=== PATIENT | female | born 1940 | race Caucasian/White ===

== ENCOUNTER 2022-08-23 00:45 | Inpatient (IN) ==
[2022-08-23] MEDS ORDERED: Morphine 4 MG/ML VIAL (1 ml) IV ONE (01:01)
[2022-08-23] MEDS ORDERED: Ondansetron 4 mg VIAL 2 MG/ML 2 ml VIAL IV ONE (01:01)
[2022-08-23] MEDS ORDERED: HYDROmorphone 1 MG/1 ML SYRINGE IV ONE (01:54)
[2022-08-23 02:13] LABS: ABS Lymphocytes 0.7 10^3/ul (1.0-4.8); ABS Monocytes 0.6 10^3/ul (0-0.8); ABS Neutrophils 9.9 10^3/ul (1.5-7.7); Eosinophil % 0.2 %; Hematocrit 40 % (35-47); Hemoglobin 13.2 g/dL (12.0-16.0); Lymphocyte % 6.1 %; Mean Corpuscular HGB Conc 33 g/dL (31-36); Mean Corpuscular Hemoglobin 32 pg (27-31); Mean Corpuscular Volume 97 fL (80-97); Mean Platelet Volume 6.9 fL (7.4-10.4); Platelet Count 234 10^3/uL (150-450); Red Blood Count 4.13 10^6 /uL (3.70-4.87); Red Cell Distribution Width 14 % (10-15); White Blood Count 11.1 10^3/uL (3.5-10.8)
[2022-08-23] MEDS ORDERED: HYDROmorphone 0.5 MG/0.5 ML SYRINGE IV PRN (02:38)
[2022-08-23 02:46] LABS: Albumin 4.3 g/dL (3.2-5.2); Albumin/Globulin Ratio 2.3 (1-3); C Reactive Protein 2.74 mg/L (<8.01); Calcium 9.3 mg/dL (8.6-10.3); Globulin 1.9 g/dL (2-4); Potassium 3.7 mmol/L (3.5-5.0); Total Bilirubin 1.2 mg/dL (0.2-1.0); Total Protein 6.2 g/dL (6.4-8.9); eGFR CKD-EPI 87.5 (>60)
[2022-08-23 03:33] LABS: High Sensitivity Troponin 1 Hr 13 pg/mL (<15)
[2022-08-23] MEDS ORDERED: Labetalol IV 5 MG/ML 20 ml VIAL IV PUSH PRN (03:40)
[2022-08-23] MEDS ORDERED: ceFAZolin 2 GM in NS PREMIX 2 GM/100 ML BAG IVPB ONE (10:34)
[2022-08-23] MEDS ORDERED: ceFAZolin 1 GM in Dextrose 1 GM/50 ML BAG ONE (12:31)
[2022-08-23] MEDS ORDERED: fentaNYL 250 mcg/5 ml 50 MCG/ML 5 ml VIAL (250 MCG) ONE (12:59)
[2022-08-23] MEDS ORDERED: Propofol 10 MG/ML 20 ML BTL ONE (13:00)
[2022-08-23] MEDS ORDERED: Dexamethasone IV 4 MG/ML VIAL 1 ml VIAL ONE (13:00)
[2022-08-23] MEDS ORDERED: Ondansetron 4 mg VIAL 2 MG/ML 2 ml VIAL ONE (13:00)
[2022-08-23] MEDS ORDERED: Bupivacaine 0.5% 50 ML MDV VIAL ONE (13:26)
[2022-08-23] MEDS ORDERED: fentaNYL 100 mcg/2 ml 50 MCG/ML VIAL IV PRN (16:27)
[2022-08-23] MEDS ORDERED: Naloxone 0.4 mg VIAL 0.4 mg/ml 1 ml VIAL IV PRN (16:27)
[2022-08-23] MEDS ORDERED: Ondansetron 4 mg VIAL 2 MG/ML 2 ml VIAL IV PRN (16:27)
[2022-08-23] MEDS ORDERED: HYDROcodone/ACETAMIN 5/325 mg TAB PO PRN (16:27)
[2022-08-23] MEDS ORDERED: Metoclopramide 5 MG/ML VIAL (10 mg) IV PRN (16:27)
[2022-08-23] MEDS: ceFAZolin 1 GM in Dextrose 1 GM/50 ML BAG IVPB SCH (20:56)
[2022-08-23] MEDS: Acetaminophen IV 1 GM/100ML 1,000 MG/100 ML BAG IV PRN (22:35)
[2022-08-23] MEDS: Ondansetron 4 mg VIAL 2 MG/ML 2 ml VIAL IV PRN (22:35)
[2022-08-24] MEDS: ceFAZolin 1 GM in Dextrose 1 GM/50 ML BAG IVPB SCH ×2 (05:49→13:43)
[2022-08-24 05:51] LABS: ABS Lymphocytes 0.7 10^3/ul (1.0-4.8); ABS Monocytes 0.7 10^3/ul (0-0.8); ABS Neutrophils 8.4 10^3/ul (1.5-7.7); Hematocrit 31 % (35-47); Hemoglobin 10.7 g/dL (12.0-16.0); Lymphocyte % 7.1 %; Mean Corpuscular HGB Conc 35 g/dL (31-36); Mean Corpuscular Hemoglobin 34 pg (27-31); Mean Corpuscular Volume 98 fL (80-97); Mean Platelet Volume 7.3 fL (7.4-10.4); Platelet Count 196 10^3/uL (150-450); Red Blood Count 3.16 10^6 /uL (3.70-4.87); Red Cell Distribution Width 14 % (10-15); White Blood Count 9.8 10^3/uL (3.5-10.8)
[2022-08-24 06:22] LABS: Calcium 8.6 mg/dL (8.6-10.3); Potassium 4.3 mmol/L (3.5-5.0); eGFR CKD-EPI 86.3 (>60)
[2022-08-24] MEDS: Enoxaparin 40 MG/0.4 ML SYR SUBCUT SCH (08:50)
[2022-08-24] MEDS: Ondansetron 4 mg VIAL 2 MG/ML 2 ml VIAL IV PRN (09:21)
[2022-08-24] MEDS: Acetaminophen IV 1 GM/100ML 1,000 MG/100 ML BAG IV PRN (14:15)
[2022-08-25 06:21] LABS: ABS Lymphocytes 1.1 10^3/ul (1.0-4.8); ABS Neutrophils 7.7 10^3/ul (1.5-7.7); Eosinophil % 0.1 %; Hematocrit 29 % (35-47); Hemoglobin 9.9 g/dL (12.0-16.0); Lymphocyte % 11.5 %; Mean Corpuscular HGB Conc 34 g/dL (31-36); Mean Corpuscular Hemoglobin 33 pg (27-31); Mean Corpuscular Volume 98 fL (80-97); Mean Platelet Volume 7.6 fL (7.4-10.4); Platelet Count 186 10^3/uL (150-450); Red Cell Distribution Width 14 % (10-15); White Blood Count 9.8 10^3/uL (3.5-10.8)
[2022-08-25 06:30] LABS: Calcium 8.6 mg/dL (8.6-10.3); Potassium 4.7 mmol/L (3.5-5.0); eGFR CKD-EPI 78.2 (>60)
[2022-08-25] MEDS: Enoxaparin 40 MG/0.4 ML SYR SUBCUT SCH (08:18)
[2022-08-25] MEDS ORDERED: Iohexol 350 (CONTRAST) 500 ML MDV IV ONE (11:29)
[2022-08-25 12:09] LABS: Urine Appearance Clear; Urine Bilirubin Negative (Negative); Urine Blood Negative (Negative); Urine Color Yellow; Urine Glucose Negative (Negative); Urine Ketones Trace (Negative); Urine Nitrite Negative (Negative); Urine Protein Negative (Negative); Urine Specific Gravity 1.023 (1.002-1.030); Urine Urobilinogen Negative (Negative)
[2022-08-26 05:46] LABS: ABS Lymphocytes 1.5 10^3/ul (1.0-4.8); ABS Monocytes 0.8 10^3/ul (0-0.8); ABS Neutrophils 4.9 10^3/ul (1.5-7.7); Eosinophil % 0.3 %; Hematocrit 31 % (35-47); Hemoglobin 10.3 g/dL (12.0-16.0); Lymphocyte % 20.9 %; Mean Corpuscular HGB Conc 33 g/dL (31-36); Mean Corpuscular Hemoglobin 33 pg (27-31); Mean Corpuscular Volume 98 fL (80-97); Mean Platelet Volume 7.9 fL (7.4-10.4); Platelet Count 210 10^3/uL (150-450); Red Blood Count 3.16 10^6 /uL (3.70-4.87); Red Cell Distribution Width 14 % (10-15); White Blood Count 7.2 10^3/uL (3.5-10.8)
[2022-08-26 06:06] LABS: Calcium 8.7 mg/dL (8.6-10.3); Potassium 4.2 mmol/L (3.5-5.0); eGFR CKD-EPI 87.2 (>60)
[2022-08-26 08:30] VITALS: BP 136/84
[2022-08-26] MEDS: Enoxaparin 40 MG/0.4 ML SYR SUBCUT SCH (08:38)
== END 2022-08-26 09:50 | DRG 522 ==
LOC: ED 00:45 → SUATTDRO 02:29 → EDHOLD 02:29 → SSU 04:51
PROVIDERS: ADMIT Student in an Organized Health Care Education/Training Program; ATTEND Student in an Organized Health Care Education/Training Program

== ENCOUNTER 2022-08-25 07:34 | Inpatient (IN) ==
[2022-08-26] MEDS: Enoxaparin 40 MG/0.4 ML SYR SUBCUT SCH (10:07)
[2022-08-26] MEDS: Multivitamins/Minerals TAB PO SCH (13:28)
[2022-08-26] MEDS: Polyethylene Glycol 3350 17 GM PACKET PO PRN (18:51)
[2022-08-26] MEDS: Senna TAB 8.6 mg TAB PO SCH (21:29)
[2022-08-27] MEDS: Enoxaparin 40 MG/0.4 ML SYR SUBCUT SCH (08:42)
[2022-08-27] MEDS: Multivitamins/Minerals TAB PO SCH (08:42)
[2022-08-27] MEDS: Polyethylene Glycol 3350 17 GM PACKET PO PRN (08:47)
[2022-08-27] MEDS: Senna TAB 8.6 mg TAB PO SCH (20:30)
[2022-08-28 05:28] LABS: ABS Eosinophils 0.1 10^3/ul (0-0.6); ABS Lymphocytes 1.3 10^3/ul (1.0-4.8); ABS Monocytes 0.6 10^3/ul (0-0.8); ABS Neutrophils 2.2 10^3/ul (1.5-7.7); Eosinophil % 3.1 %; Hematocrit 26 % (35-47); Hemoglobin 8.4 g/dL (12.0-16.0); Lymphocyte % 30.4 %; Mean Corpuscular HGB Conc 33 g/dL (31-36); Mean Corpuscular Hemoglobin 32 pg (27-31); Mean Corpuscular Volume 98 fL (80-97); Mean Platelet Volume 6.9 fL (7.4-10.4); Platelet Count 241 10^3/uL (150-450); Red Blood Count 2.62 10^6 /uL (3.70-4.87); Red Cell Distribution Width 13 % (10-15); White Blood Count 4.2 10^3/uL (3.5-10.8)
[2022-08-28 06:21] LABS: ALT 22 U/L (7-52); AST 35 U/L (13-39); Albumin 2.9 g/dL (3.2-5.2); Albumin/Globulin Ratio 1.7 (1-3); Alkaline Phosphatase 52 U/L (35-149); Anion Gap 6 mmol/L (2-11); Blood Urea Nitrogen 10 mg/dL (6-24); CO2 Carbon Dioxide 27 mmol/L (22-32); Calcium 8.3 mg/dL (8.6-10.3); Chloride 106 mmol/L (101-111); Globulin 1.7 g/dL (2-4); Glucose 97 mg/dL (70-100); Sodium 139 mmol/L (135-145); Total Protein 4.6 g/dL (6.4-8.9); eGFR CKD-EPI 90.7 (>60)
[2022-08-28 07:14] LABS: % Iron Saturation 16 % (15-55); Iron 35 ug/dL (50-212); Total Iron Binding Capacity 220 mcg/dL (250-450); Transferrin 157 mg/dL (203-362); Unsaturated Iron Binding 185 ug/dL
[2022-08-28 07:37] LABS: Ferritin 140.4 ng/mL (11-307)
[2022-08-28 07:40] LABS: Folate > 20.00 ng/mL (5.90-24.80)
[2022-08-28 07:41] LABS: Vitamin B12 769 pg/mL (180-914)
[2022-08-28] MEDS: Multivitamins/Minerals TAB PO SCH (08:35)
[2022-08-28] MEDS: Enoxaparin 40 MG/0.4 ML SYR SUBCUT SCH (08:36)
[2022-08-28] MEDS ORDERED: Senna TAB 8.6 mg TAB PO PRN (09:44)
[2022-08-29] MEDS: Ondansetron ODT 4 mg TAB 4 MG TAB SL PRN (03:03)
[2022-08-29 06:33] LABS: ABS Eosinophils 0.1 10^3/ul (0-0.6); ABS Lymphocytes 1.3 10^3/ul (1.0-4.8); ABS Monocytes 0.6 10^3/ul (0-0.8); Hematocrit 29 % (35-47); Hemoglobin 9.6 g/dL (12.0-16.0); Lymphocyte % 26.4 %; Mean Corpuscular HGB Conc 34 g/dL (31-36); Mean Corpuscular Hemoglobin 33 pg (27-31); Mean Corpuscular Volume 98 fL (80-97); Platelet Count 332 10^3/uL (150-450); Red Blood Count 2.94 10^6 /uL (3.70-4.87); Red Cell Distribution Width 13 % (10-15)
[2022-08-29] MEDS: Multivitamins/Minerals TAB PO SCH (07:49)
[2022-08-29] MEDS: Enoxaparin 40 MG/0.4 ML SYR SUBCUT SCH (07:51)
[2022-08-29] MEDS ORDERED: [UNRECOGNIZED DRUG - OTHER] PO PRN (09:33)
[2022-08-30] MEDS: Enoxaparin 40 MG/0.4 ML SYR SUBCUT SCH (08:06)
[2022-08-30] MEDS: Multivitamins/Minerals TAB PO SCH (08:08)
[2022-08-31] MEDS: Multivitamins/Minerals TAB PO SCH (07:31)
[2022-08-31] MEDS: Enoxaparin 40 MG/0.4 ML SYR SUBCUT SCH (07:32)
[2022-09-01] MEDS: Multivitamins/Minerals TAB PO SCH (08:27)
[2022-09-01] MEDS: Enoxaparin 40 MG/0.4 ML SYR SUBCUT SCH (08:30)
[2022-09-02] MEDS: Enoxaparin 40 MG/0.4 ML SYR SUBCUT SCH (08:40)
[2022-09-02] MEDS: Multivitamins/Minerals TAB PO SCH (12:34)
[2022-09-02] MEDS: Ondansetron ODT 4 mg TAB 4 MG TAB SL PRN (14:49)
[2022-09-02] MEDS ORDERED: PAIN RELIEVING RUB (MENTHOL/SALICYLATE) 1 APPLIC TUBE TOPICAL PRN (20:34)
[2022-09-03] MEDS: Multivitamins/Minerals TAB PO SCH (08:34)
[2022-09-03] MEDS: Enoxaparin 40 MG/0.4 ML SYR SUBCUT SCH (08:36)
[2022-09-04 06:32] LABS: ABS Eosinophils 0.2 10^3/ul (0-0.6); ABS Lymphocytes 1.3 10^3/ul (1.0-4.8); ABS Monocytes 0.4 10^3/ul (0-0.8); ABS Neutrophils 1.8 10^3/ul (1.5-7.7); Eosinophil % 4.3 %; Hematocrit 29 % (35-47); Hemoglobin 9.2 g/dL (12.0-16.0); Lymphocyte % 34.9 %; Mean Corpuscular HGB Conc 32 g/dL (31-36); Mean Corpuscular Hemoglobin 32 pg (27-31); Mean Corpuscular Volume 99 fL (80-97); Mean Platelet Volume 6.6 fL (7.4-10.4); Platelet Count 499 10^3/uL (150-450); Red Cell Distribution Width 14 % (10-15); White Blood Count 3.7 10^3/uL (3.5-10.8)
[2022-09-04 07:03] LABS: Albumin 3.4 g/dL (3.2-5.2); Calcium 8.8 mg/dL (8.6-10.3); Globulin 1.7 g/dL (2-4); Potassium 4.1 mmol/L (3.5-5.0); Total Bilirubin 0.7 mg/dL (0.2-1.0); Total Protein 5.1 g/dL (6.4-8.9); eGFR CKD-EPI 89.2 (>60)
[2022-09-04] MEDS: Multivitamins/Minerals TAB PO SCH (07:33)
[2022-09-04] MEDS: Enoxaparin 40 MG/0.4 ML SYR SUBCUT SCH (07:33)
[2022-09-05] MEDS: Enoxaparin 40 MG/0.4 ML SYR SUBCUT SCH (08:40)
[2022-09-05] MEDS: Multivitamins/Minerals TAB PO SCH (08:43)
[2022-09-06] MEDS: Multivitamins/Minerals TAB PO SCH (09:16)
[2022-09-06] MEDS: Enoxaparin 40 MG/0.4 ML SYR SUBCUT SCH (09:19)
[2022-09-07] MEDS: Multivitamins/Minerals TAB PO SCH (07:33)
[2022-09-07] MEDS: Enoxaparin 40 MG/0.4 ML SYR SUBCUT SCH (07:35)
[2022-09-08 05:12] VITALS: BP 147/80
[2022-09-08] MEDS: Enoxaparin 40 MG/0.4 ML SYR SUBCUT SCH (10:55)
[2022-09-08] MEDS: Multivitamins/Minerals TAB PO SCH (10:55)
== END 2022-09-08 14:15 | disposition home health service (06) | DRG 560 ==
LOC: PMRU 08-26 09:59
PROVIDERS: ADMIT Physical Medicine & Rehabilitation; ATTEND Physical Medicine & Rehabilitation